=== PATIENT | male | born 1985 | race Caucasian/White ===

== ENCOUNTER 2021-04-13 19:22 | Emergency (ER) | payer MEDICAID ==
[2021-04-13] MEDS ORDERED: SODIUM CHLORIDE 0.9% 1,000 ML IV STA (19:54)
--- NOTE | 2021-04-13 20:00 | ED ---
General Adult HPI - General Chief complaint: Upper Respiratory Infection Stated complaint: Covid Positive,Headache,Chest Tightness Time Seen by Provider: 04/13/21 19:45 Source: patient, RN notes reviewed Mode of arrival: ambulatory Limitations: no limitations - History of Present Illness Initial comments: 35-year-old well-appearing male, presents to the emergency room, alert and oriented 4, with complaints of testing positive coronavirus on Wednesday. He states that his symptoms also started Wednesday with congestion, cough, fevers and bilateral eye burning. Patient states that his chest is not tight with breathing and he was told by his who is a nurse to come to the emergency room. He has not been vaccinated for coronavirus. He is requesting the monoclonal antibody infusion. He has no medical history other than childhood asthma. No medications on a daily basis. -: days(s) (7) Location: head (congestion), chest Severity scale (1-10): 5 Quality: aching Consistency: constant Improves with: none Worsens with: other (breathing) Associated Symptoms: cough, fever/chills, headaches, malaise - Related Data Home Medications Medication Instructions Recorded Confirmed Loratadine [Claritin] 10 mg PO DAILY PRN 04/13/21 04/13/21 Pseudoephedrine [Sudafed] 30 - 60 mg PO Q4H PRN 04/13/21 04/13/21 guaiFENesin [Mucinex] 600 mg PO Q12H PRN 04/13/21 04/13/21 Allergies Allergy/AdvReac Type Severity Reaction Status Date / Time No Known Allergies Allergy Verified 04/13/21 20:33 Review of Systems ROS Statement: Those systems with pertinent positive or pertinent negative responses have been documented in the HPI. ROS Other: All systems not noted in ROS Statement are negative. Past Medical History Additional Past Medical History / Comment(s): childhood asthma History of Any Multi-Drug Resistant Organisms: None Reported Past Surgical History: No Surgical Hx Reported Past Psychological History: No Psychological Hx Reported Smoking Status: Never smoker Past Alcohol Use History: Occasional Past Drug Use History: None Reported General Exam Limitations: no limitations General appearance: alert, in no apparent distress Head exam: Present: atraumatic, normocephalic, normal inspection Eye exam: Present: normal appearance, EOMI. Absent: scleral icterus, conjunctival injection, periorbital swelling, periorbital tenderness ENT exam: Present: normal exam, normal oropharynx, other (Sticky mucous membranes) Neck exam: Present: normal inspection, full ROM. Absent: tenderness, meningismus, lymphadenopathy, thyromegaly Respiratory exam: Present: normal lung sounds bilaterally. Absent: respiratory distress, wheezes, rales, rhonchi, stridor, chest wall tenderness, accessory muscle use, decreased breath sounds, prolonged expiratory Cardiovascular Exam: Present: normal rhythm, tachycardia, normal heart sounds. Absent: JVD GI/Abdominal exam: Present: soft, normal bowel sounds. Absent: distended, tenderness, guarding, rebound, rigid Back exam: Present: normal inspection, full ROM. Absent: tenderness, CVA tenderness (R), CVA tenderness (L), rash noted Neurological exam: Present: alert, oriented X3 Psychiatric exam: Present: normal affect, normal mood Skin exam: Present: warm, dry, intact, normal color. Absent: rash, cyanosis, diaphoretic, erythema, petechiae, pallor Course Vital Signs 04/13/21 04/13/21 04/13/21 19:38 19:44 21:30 Temperature 99.6 F 98.7 F Pulse Rate 118 H 84 Respiratory 20 22 18 Rate Blood Pressure 155/107 130/94 O2 Sat by Pulse 99 98 Oximetry 04/13/21 22:16 Temperature Pulse Rate 80 Respiratory 18 Rate Blood Pressure 146/95 O2 Sat by Pulse 98 Oximetry EKG Findings - EKG Results: EKG: sinus rhythm (Ventricular rate of 74, [place] interval 0.148, QRS 0.92, QTC 0.410) Medical Decision Making - Medical Decision Making 35-year-old well-appearing patient presents to the emergency room with complaints of congestion, difficulty breathing and chest tightness for one week. Patient states he has not been vaccinated against coronavirus and is interested in monoclonal antibodies infusion. His coronavirus swab is positive in the emergency room today. Chest x-ray shows lungs are clear, heart and mediastinum are normal. There is no evidence of leukocytosis. Troponin is negative at 0.012 EKG shows normal sinus rhythm, no ST elevation. His vital signs are stable, heart rate of 84, temperature is down to 98.7, oxygen sa turation is 98% on room air. He has no leg swelling, no hemoptysis, no recent surgeries or trauma, and no prior PE or DVT. He was given monoclonal antibody infusion. He was discharged home and directed to self quarantine for 10 days from symptom onset and 24 hours without fever. Rreturn to the emergency room with any new or worsening symptoms. - Lab Data Result diagrams: 04/13/21 19:56 04/13/21 19:56 Lab Results 04/13/21 04/13/21 04/13/21 Range/Units 19:56 19:56 19:56 WBC 6.1 (3.8-10.6) k/uL RBC 5.76 (4.30-5.90) m/uL Hgb 17.1 (13.0-17.5) gm/dL Hct 49.8 (39.0-53.0) % MCV 86.5 (80.0-100.0) fL MCH 29.7 (25.0-35.0) pg MCHC 34.3 (31.0-37.0) g/dL RDW 11.6 (11.5-15.5) % Plt Count 225 (150-450) k/uL MPV 8.0 Neutrophils % 68 % Lymphocytes % 18 % Monocytes % 10 % Eosinophils % 0 % Basophils % 1 % Neutrophils # 4.1 (1.3-7.7) k/uL Lymphocytes # 1.1 (1.0-4.8) k/uL Monocytes # 0.6 (0-1.0) k/uL Eosinophils # 0.0 (0-0.7) k/uL Basophils # 0.0 (0-0.2) k/uL Sodium 142 (137-145) mmol/L Potassium 4.0 (3.5-5.1) mmol/L Chloride 102 (98-107) mmol/L Carbon Dioxide 27 (22-30) mmol/L Anion Gap 13 mmol/L BUN 12 (9-20) mg/dL Creatinine 0.93 (0.66-1.25) mg/dL Est GFR (CKD-EPI)AfAm >90 (>60 ml/min/1.73 sqM) Est GFR (CKD-EPI)NonAf >90 (>60 ml/min/1.73 sqM) Glucose 124 H (74-99) mg/dL Calcium 9.6 (8.4-10.2) mg/dL Magnesium 1.9 (1.6-2.3) mg/dL Total Bilirubin 0.6 (0.2-1.3) mg/dL AST 38 (17-59) U/L ALT 52 H (4-49) U/L Alkaline Phosphatase 111 (38-126) U/L Troponin I (0.000-0.034) ng/mL Total Protein 8.4 H (6.3-8.2) g/dL Albumin 4.9 (3.5-5.0) g/dL Coronavirus (PCR) Detected A (Not Detectd) 04/13/21 Range/Units 19:56 WBC (3.8-10.6) k/uL RBC (4.30-5.90) m/uL Hgb (13.0-17.5) gm/dL Hct (39.0-53.0) % MCV (80.0-100.0) fL MCH (25.0-35.0) pg MCHC (31.0-37.0) g/dL RDW (11.5-15.5) % Plt Count (150-450) k/uL MPV Neutrophils % % Lymphocytes % % Monocytes % % Eosinophils % % Basophils % % Neutrophils # (1.3-7.7) k/uL Lymphocytes # (1.0-4.8) k/uL Monocytes # (0-1.0) k/uL Eosinophils # (0-0.7) k/uL Basophils # (0-0.2) k/uL Sodium (137-145) mmol/L Potassium (3.5-5.1) mmol/L Chloride (98-107) mmol/L Carbon Dioxide (22-30) mmol/L Anion Gap mmol/L BUN (9-20) mg/dL Creatinine (0.66-1.25) mg/dL Est GFR (CKD-EPI)AfAm (>60 ml/min/1.73 sqM) Est GFR (CKD-EPI)NonAf (>60 ml/min/1.73 sqM) Glucose (74-99) mg/dL Calcium (8.4-10.2) mg/dL Magnesium (1.6-2.3) mg/dL Total Bilirubin (0.2-1.3) mg/dL AST (17-59) U/L ALT (4-49) U/L Alkaline Phosphatase (38-126) U/L Troponin I <0.012 (0.000-0.034) ng/mL Total Protein (6.3-8.2) g/dL Albumin (3.5-5.0) g/dL Coronavirus (PCR) (Not Detectd) Disposition Clinical Impression: COVID-19 Disposition: HOME SELF-CARE Instructions (If sedation given, give patient instructions): Coronavirus Disease 2019 (COVID-19) Additional Instructions: Self quarantine for 10 days after symptom onset and 24 hours without fever. You can take vitamin C, vitamin D and zinc for immune health. Return to the emergency room with any new or concerning symptoms. Is patient prescribed a controlled substance at d/c from ED?: No Referrals: None,Stated [Primary Care Provider] - 1-2 days Time of Disposition: 23:00
[2021-04-13 20:07] LABS: Basophils % (A) 1 %; Eosinophils % (A) 0 %; HCT 49.8 % (39.0-53.0); HGB 17.1 gm/dL (13.0-17.5); Lymphocytes # (A) 1.1 k/uL (1.0-4.8); Lymphocytes % (A) 18 %; MCH 29.7 pg (25.0-35.0); MCHC 34.3 g/dL (31.0-37.0); MCV 86.5 fL (80.0-100.0); Monocytes # (A) 0.6 k/uL (0-1.0); Monocytes % (A) 10 %; Neutrophils # (A) 4.1 k/uL (1.3-7.7); Neutrophils % (A) 68 %; Platelet Count 225 k/uL (150-450); RBC 5.76 m/uL (4.30-5.90); RDW 11.6 % (11.5-15.5); WBC 6.1 k/uL (3.8-10.6)
[2021-04-13] MEDS ORDERED: ACETAMINOPHEN TAB 325 MG TAB PO STA (20:10)
[2021-04-13 20:37] LABS: ALT 52 U/L (4-49); AST 38 U/L (17-59); African American GFR (CKD) >90 (>60 ml/min/1.73 sqM); Albumin 4.9 g/dL (3.5-5.0); Alkaline Phosphatase 111 U/L (38-126); Anion Gap 13 mmol/L; Blood Urea Nitrogen 12 mg/dL (9-20); Calcium 9.6 mg/dL (8.4-10.2); Carbon Dioxide 27 mmol/L (22-30); Chloride 102 mmol/L (98-107); Glucose 124 mg/dL (74-99); Magnesium 1.9 mg/dL (1.6-2.3); Non-African American GFR(CKD) >90 (>60 ml/min/1.73 sqM); Sodium 142 mmol/L (137-145); Total Bilirubin 0.6 mg/dL (0.2-1.3); Total Protein 8.4 g/dL (6.3-8.2)
--- NOTE | 2021-04-13 20:52 | XR ---
EXAMINATION TYPE: XR chest 2V DATE OF EXAM: 04/13/2021 COMPARISON: NONE HISTORY: Short of breath. Congestion TECHNIQUE: Single view FINDINGS: Heart and mediastinum are normal. Lungs are clear. Diaphragm is normal. Bony thorax is inta ct. IMPRESSION: Normal chest.
[2021-04-13] MEDS ORDERED: SOTROVIMAB (EUA) 500 MG in SODIUM CHLORIDE 0.9% 100 ML IVPB ONE (21:15)
[2021-04-13] MEDS ORDERED: SODIUM CHLORIDE 0.9% 50 ML IVPB ONE (21:15)
[2021-04-13 21:43] VITALS: RESP 18; TEMP 98.7
[2021-04-13] MEDS ORDERED: LORazepam 2 MG/ML INJ IV STA (21:57)
[2021-04-13 23:55] VITALS: BP 136/88; PULSE 73
== END 2021-04-13 23:53 | disposition home or self-care (01) ==
LOC: EC 19:22
DX: U07.1 COVID-19 (principal); J45.909 Unspecified asthma, uncomplicated
CPT/HCPCS: 36415; 93005; 80053; 83735; 84484; 85025; 87635; 71046; 99285; 96374; 96361; J2060; Q0247